=== PATIENT | male | born 1985 | race African-American/Black ===

== ENCOUNTER 2018-05-26 17:26 | Emergency (ER) | payer BC ==
[~2018-05-26] VITALS: Ht 185.4 cm; Wt 82.0 kg
[2018-05-26] MEDS ORDERED: ACETAMINOPHEN 500MG TABLET PO ONE (22:45)
[2018-05-26 23:00] VITALS: BP 120/78
== END 2018-05-26 23:15 | disposition home or self-care (01) ==
LOC: ER 17:26
DX: H66.91 Otitis media, unspecified, right ear (principal); H61.22 Impacted cerumen, left ear; F17.200 Nicotine dependence, unspecified, uncomplicated
CPT/HCPCS: 99283